=== PATIENT | male | born 1945 | race Caucasian/White ===

== ENCOUNTER 2022-05-22 14:08 | Inpatient (IN) ==
[2022-05-22 15:02] LABS: Basophils % 0.4 %; Eosinophils # 0.3 K/mcL (0.0-0.6); Eosinophils % 6.6 %; Hematocrit 34.8 % (37.5-50.1); Hemoglobin 11.1 g/dL (12.9-16.9); Immature Granulocytes % 0.2 % (0-4); Lymphocytes # 0.9 K/mcL (0.6-4.6); Lymphocytes % 17.6 %; Mean Corpuscular HGB Conc 31.9 g/dL (31.6-35.5); Mean Corpuscular Hemoglobin 29.6 pg (28.0-33.3); Mean Corpuscular Volume 92.8 fL (83.0-100.0); Mean Platelet Volume 11.4 fL (9.4-12.4); Monocytes # 0.5 K/mcL (0.0-1.3); Neutrophils # 3.3 K/mcL (1.6-8.9); Platelet Count 171 K/mcL (140-400); Red Blood Count 3.75 M/mcL (4.19-5.50); Segmented Neutrophils % 66.2 %
[2022-05-22 15:24] LABS: BUN/Creatinine Ratio 16 (6-26); Blood Urea Nitrogen 27 mg/dL (8-23); Calcium 9.6 mg/dL (8.6-10.3); Carbon Dioxide 28 mEq/L (23-29); Chloride 104 mEq/L (98-107); Glucose 174 mg/dL (70-105); Osmolality,Calculated 295 (280-300); Potassium 4.5 mEq/L (3.5-5.1); Sodium 138 mEq/L (136-145); Troponin I < 0.03 ng/mL (< 0.04); eGFR For African Americans 49 (> 60); eGFR For Non-African Americans 40 (> 60)
[2022-05-22] MEDS ORDERED: Acetaminophen 325 MG TABLET PO PRN (19:47)
[2022-05-22] MEDS ORDERED: Melatonin 3 MG TABLET PO PRN (19:47)
[2022-05-22] MEDS ORDERED: Ondansetron 4 MG/2 ML VIAL IVP PRN (19:47)
[2022-05-22] MEDS ORDERED: Naloxone 0.4 MG/ML INJ IVP PRN (19:47)
[2022-05-22] MEDS ORDERED: Perflutren Lipid Microsphere 1.3 ML in 0.9 % Sodium Chloride 8.7 ML IVP PRN (19:51)
[2022-05-22] MEDS ORDERED: D5% in Water 1,000 ML IVC PRN (20:52)
[2022-05-22] MEDS ORDERED: *HR* Dextrose 50 % in Water (Syg) 50 ML SYRINGE IVP PRN (20:52)
[2022-05-22] MEDS ORDERED: Dextrose Gel 15 GM/37.5 ML TUBE PO PRN ×2 (20:52)
[2022-05-22] MEDS: 0.9 % Sodium Chloride 1,000 ML IVC SCH (21:59)
[2022-05-22] MEDS: Insulin LISPRO 300 UNITS/3 ML VIAL SUBQ SCH (23:24)
[2022-05-22 23:30] LABS: Bilirubin,Urine Negative (Negative); Blood,Urine Negative (Negative); Clarity,Urine Clear (Clear); Color,Urine Colorless (Yellow); Glucose,Urine (UA) Normal (Normal); Ketones,Urine Negative (Negative); Leukocyte Esterase,Urine Negative (Negative); Nitrite,Urine Negative (Negative); Protein,Urine Negative (Neg-Trace); Specific Gravity,Urine 1.012 (1.010-1.025); Urobilinogen,Urine Normal (Normal)
[2022-05-23 03:29] LABS: Hematocrit 35.1 % (37.5-50.1); Hemoglobin 11.2 g/dL (12.9-16.9); Mean Corpuscular HGB Conc 31.9 g/dL (31.6-35.5); Mean Corpuscular Hemoglobin 29.4 pg (28.0-33.3); Mean Corpuscular Volume 92.1 fL (83.0-100.0); Mean Platelet Volume 11.7 fL (9.4-12.4); Platelet Count 176 K/mcL (140-400); Red Blood Count 3.81 M/mcL (4.19-5.50); Red Cell Distribution Width 13.8 % (11.5-14.5); White Blood Count 6.1 K/mcL (4.3-11.1)
[2022-05-23 03:34] LABS: INR 1.1; Prothrombin Time 12.5 Seconds (9.4-12.1)
[2022-05-23 03:37] LABS: Activated Partial Thrombo Time 37.6 Seconds (26.0-36.0)
[2022-05-23 03:57] LABS: BUN/Creatinine Ratio 15 (6-26); Blood Urea Nitrogen 24 mg/dL (8-23); Calcium 9.5 mg/dL (8.6-10.3); Carbon Dioxide 29 mEq/L (23-29); Chloride 106 mEq/L (98-107); Glucose 78 mg/dL (70-105); Magnesium 2.2 mg/dL (1.6-2.6); Osmolality,Calculated 297 (280-300); Phosphorous 2.9 mg/dL (2.7-4.5); Sodium 142 mEq/L (136-145); Troponin I < 0.03 ng/mL (< 0.04); eGFR For African Americans 51 (> 60); eGFR For Non-African Americans 42 (> 60)
[2022-05-23 04:02] LABS: Thyroid Stimulating Hormone 3.614 mcIU/mL (0.340-5.600)
[2022-05-23] MEDS ORDERED: Insulin LISPRO 300 UNITS/3 ML VIAL SUBQ SCH (07:30)
[2022-05-23] MEDS: Insulin LISPRO 300 UNITS/3 ML VIAL SUBQ SCH ×3 (09:04→16:50)
[2022-05-23] MEDS: 0.9 % Sodium Chloride 1,000 ML IVC SCH (10:44)
[2022-05-23] MEDS: haloperidoL 5 MG TABLET PO SCH (16:50)
[2022-05-23] MEDS: lisinopriL 10 MG TABLET PO SCH (16:50)
[2022-05-23] MEDS: Apixaban 5 MG TABLET PO SCH (19:56)
[2022-05-23] MEDS: Sennosides/Docusate Sodium TABLET PO SCH (19:56)
[2022-05-23] MEDS: Melatonin 3 MG TABLET PO SCH (19:56)
[2022-05-23] MEDS: polyethylene glycoL 3350 17 GM POWD.PACK PO SCH (19:56)
[2022-05-23] MEDS: Lacri-Lube 3.5 GM TUBE OP SCH (23:08)
[2022-05-24 03:08] LABS: Basophils % 0.3 %; Eosinophils # 0.4 K/mcL (0.0-0.6); Eosinophils % 5.9 %; Hematocrit 32.7 % (37.5-50.1); Hemoglobin 10.7 g/dL (12.9-16.9); Immature Granulocytes % 0.2 % (0-4); Lymphocytes # 1.2 K/mcL (0.6-4.6); Lymphocytes % 20.3 %; Mean Corpuscular HGB Conc 32.7 g/dL (31.6-35.5); Mean Corpuscular Hemoglobin 30.2 pg (28.0-33.3); Mean Corpuscular Volume 92.4 fL (83.0-100.0); Mean Platelet Volume 11.7 fL (9.4-12.4); Monocytes # 0.7 K/mcL (0.0-1.3); Monocytes % 11.2 %; Neutrophils # 3.8 K/mcL (1.6-8.9); Platelet Count 176 K/mcL (140-400); Red Blood Count 3.54 M/mcL (4.19-5.50); Red Cell Distribution Width 13.8 % (11.5-14.5); Segmented Neutrophils % 62.1 %; White Blood Count 6.1 K/mcL (4.3-11.1)
[2022-05-24 03:30] LABS: Estimated Average Glucose 174 mg/dl; Hemoglobin A1C 7.7 %
[2022-05-24 03:33] LABS: Calcium 9.1 mg/dL (8.6-10.3); Magnesium 2.2 mg/dL (1.6-2.6)
[2022-05-24] MEDS: Levothyroxine 25 MCG TABLET PO SCH (05:28)
[2022-05-24] MEDS: Insulin LISPRO 300 UNITS/3 ML VIAL SUBQ SCH ×3 (08:46→17:16)
[2022-05-24] MEDS: polyethylene glycoL 3350 17 GM POWD.PACK PO SCH ×2 (08:55→21:11)
[2022-05-24] MEDS: Sennosides/Docusate Sodium TABLET PO SCH ×2 (08:57→21:10)
[2022-05-24] MEDS: allopurinoL 100 MG TABLET PO SCH (08:57)
[2022-05-24] MEDS: lisinopriL 10 MG TABLET PO SCH (08:57)
[2022-05-24] MEDS: haloperidoL 5 MG TABLET PO SCH ×2 (08:58→15:03)
[2022-05-24] MEDS: Melatonin 3 MG TABLET PO SCH (21:10)
[2022-05-24] MEDS: Lacri-Lube 3.5 GM TUBE OP SCH (21:11)
[2022-05-25] MEDS: Levothyroxine 25 MCG TABLET PO SCH (05:27)
[2022-05-25 05:56] LABS: Calcium 9.1 mg/dL (8.6-10.3); Potassium 4.3 mEq/L (3.5-5.1)
[2022-05-25] MEDS: Insulin LISPRO 300 UNITS/3 ML VIAL SUBQ SCH ×4 (08:02→17:01)
[2022-05-25] MEDS: polyethylene glycoL 3350 17 GM POWD.PACK PO SCH ×2 (08:03→22:16)
[2022-05-25] MEDS: Sennosides/Docusate Sodium TABLET PO SCH ×2 (08:03→22:15)
[2022-05-25] MEDS: lisinopriL 10 MG TABLET PO SCH (08:03)
[2022-05-25] MEDS: haloperidoL 5 MG TABLET PO SCH ×2 (08:03→12:19)
[2022-05-25] MEDS: allopurinoL 100 MG TABLET PO SCH (08:03)
[2022-05-25] MEDS ORDERED: *HR* Digoxin 0.5 MG/2 ML AMPUL IVP ONE (14:34)
[2022-05-25] MEDS: Melatonin 3 MG TABLET PO SCH (22:15)
[2022-05-25] MEDS: Lacri-Lube 3.5 GM TUBE OP SCH (22:16)
[2022-05-26] MEDS: Levothyroxine 25 MCG TABLET PO SCH (06:21)
[2022-05-26] MEDS: Insulin LISPRO 300 UNITS/3 ML VIAL SUBQ SCH ×3 (08:55→17:34)
[2022-05-26] MEDS: Sennosides/Docusate Sodium TABLET PO SCH ×2 (08:55→20:20)
[2022-05-26] MEDS: allopurinoL 100 MG TABLET PO SCH (08:55)
[2022-05-26] MEDS: haloperidoL 5 MG TABLET PO SCH ×2 (08:56→12:13)
[2022-05-26] MEDS: polyethylene glycoL 3350 17 GM POWD.PACK PO SCH ×2 (08:56→20:21)
[2022-05-26] MEDS: lisinopriL 10 MG TABLET PO SCH (08:56)
[2022-05-26] MEDS: clonazePAM 0.5 MG TABLET PO SCH (20:20)
[2022-05-26] MEDS: Gabapentin 100 MG CAPSULE PO SCH (20:20)
[2022-05-26] MEDS: Lacri-Lube 3.5 GM TUBE OP SCH (20:20)
[2022-05-26] MEDS: Melatonin 3 MG TABLET PO SCH (20:20)
[2022-05-26] MEDS ORDERED: Gabapentin 100 MG CAPSULE PO SCH (21:00)
[2022-05-27] MEDS: Levothyroxine 25 MCG TABLET PO SCH (06:07)
[2022-05-27 09:59] LABS: Hematocrit 38.1 % (37.5-50.1); Hemoglobin 12.2 g/dL (12.9-16.9); Mean Corpuscular Hemoglobin 29.4 pg (28.0-33.3); Mean Corpuscular Volume 91.8 fL (83.0-100.0); Mean Platelet Volume 11.5 fL (9.4-12.4); Platelet Count 224 K/mcL (140-400); Red Blood Count 4.15 M/mcL (4.19-5.50); Red Cell Distribution Width 13.9 % (11.5-14.5); White Blood Count 5.8 K/mcL (4.3-11.1)
[2022-05-27] MEDS: haloperidoL 5 MG TABLET PO SCH ×2 (10:15→10:16)
[2022-05-27] MEDS: Insulin LISPRO 300 UNITS/3 ML VIAL SUBQ SCH ×3 (10:15→17:23)
[2022-05-27] MEDS: clonazePAM 0.5 MG TABLET PO SCH ×2 (10:16→21:50)
[2022-05-27] MEDS: polyethylene glycoL 3350 17 GM POWD.PACK PO SCH ×2 (10:16→21:50)
[2022-05-27] MEDS: Sennosides/Docusate Sodium TABLET PO SCH ×2 (10:16→21:50)
[2022-05-27] MEDS: allopurinoL 100 MG TABLET PO SCH (10:16)
[2022-05-27] MEDS: lisinopriL 10 MG TABLET PO SCH (10:16)
[2022-05-27 10:36] LABS: Calcium 9.9 mg/dL (8.6-10.3); Magnesium 1.7 mg/dL (1.6-2.6); Potassium 4.3 mEq/L (3.5-5.1)
[2022-05-27] MEDS ORDERED: 0.9 % Sodium Chloride 1,000 ML ONE (15:24)
[2022-05-27] MEDS ORDERED: *HR* Midazolam HCl 2 MG/2 ML VIAL ONE (15:24)
[2022-05-27] MEDS ORDERED: *HR* FentaNYL (PF) 100 MCG/2 ML VIAL ONE (15:24)
[2022-05-27] MEDS: Apixaban 5 MG TABLET PO SCH (21:49)
[2022-05-27] MEDS: Lacri-Lube 3.5 GM TUBE OP SCH (21:50)
[2022-05-27] MEDS: Melatonin 3 MG TABLET PO SCH (21:50)
[2022-05-27] MEDS: Gabapentin 100 MG CAPSULE PO SCH (21:50)
[2022-05-28 05:05] VITALS: O2SAT 96
[2022-05-28] MEDS: Levothyroxine 25 MCG TABLET PO SCH (05:34)
[2022-05-28 07:44] VITALS: BP 102/62; PULSE 51; TEMP 97.6
[2022-05-28] MEDS: clonazePAM 0.5 MG TABLET PO SCH (09:17)
[2022-05-28] MEDS: Apixaban 5 MG TABLET PO SCH (09:18)
[2022-05-28] MEDS: Sennosides/Docusate Sodium TABLET PO SCH (09:18)
[2022-05-28] MEDS: lisinopriL 10 MG TABLET PO SCH (09:18)
[2022-05-28] MEDS: allopurinoL 100 MG TABLET PO SCH (09:18)
[2022-05-28] MEDS: polyethylene glycoL 3350 17 GM POWD.PACK PO SCH (09:19)
[2022-05-28] MEDS: haloperidoL 5 MG TABLET PO SCH (09:19)
[2022-05-28] MEDS: Insulin LISPRO 300 UNITS/3 ML VIAL SUBQ SCH (10:08)
[2022-05-28 12:07] LABS: Adenovirus Not Detected (Not Detect); Bordetella Pertussis Not Detected (Not Detect); Chlamydophila pneumoniae Not Detected (Not Detect); Coronavirus 229E Not Detected (Not Detect); Coronavirus HKU1 Not Detected (Not Detect); Coronavirus NL63 Not Detected (Not Detect); Coronavirus OC43 Not Detected (Not Detect); Human Metapneumovirus Not Detected (Not Detect); Human Rhinovirus/Enterovirus Not Detected (Not Detect); Influenza A Subtype 2009 H1 Not Detected (Not Detect); Influenza B Not Detected (Not Detect); Mycoplasma pneumoniae Not Detected (Not Detect); Parainfluenza Virus 1 Not Detected (Not Detect); Parainfluenza Virus 2 Not Detected (Not Detect); Parainfluenza Virus 3 Not Detected (Not Detect); Parainfluenza Virus 4 Not Detected (Not Detect); Respiratory Syncytial Virus Not Detected (Not Detect); SARS-CoV-2 Not Detected (Not Detect)
== END 2022-05-28 11:08 | DRG 261 ==
LOC: 2NENU 14:08 → EMEROOARM 14:08 → SUATTDRO 20:01 → 2NENU 21:25 → SUATTDRO 05-24 16:05
PROVIDERS: ADMIT General Practice; ATTEND Internal Medicine